=== PATIENT | female | born 1985 ===

== ENCOUNTER 2021-12-08 19:06 | Outpatient (REF) | payer OTHER, SELFPAY | END 2021-12-08 19:07 | disposition home or self-care (01) | LOC: NCHCN 19:06 | PROVIDERS: Visit Provider Family Medicine | DX: J06.9 Acute upper respiratory infection, unspecified (principal) | CPT/HCPCS: 87070; 87205 ==

== ENCOUNTER 2022-01-23 16:46 | Outpatient (REF) | payer OTHER, SELFPAY ==
--- NOTE | 2022-01-23 16:30 | SKI_PTH ---
PATIENT: Mei Potts LOC: [facility] U#:[id number] AGE/SX: 36/F ROOM: RE01/23/[address]: Meg Mcmullen : 1985 BED: DIS: 01/23/2022 SPEC #: [id number] RECD: 01/24/22 12:16 STATUS: ANTONIO MANJARREZ #: [id number] CAROLYN: 01/23/22 16:[address]: Meg Mcmullen DEPT: Surgical Specimen RECD BY: Violeta Christensen Tissues: 1 - SKIN BIOPSY(SHAVE/PUNCH) Procedures: SKIN LEVEL 4 Comments: [id number]
== END 2022-01-23 16:47 | disposition home or self-care (01) ==
LOC: NCHCN 16:46
PROVIDERS: Visit Provider Nurse Practitioner Family
DX: L30.8 Other specified dermatitis (principal)
CPT/HCPCS: 88305

== ENCOUNTER 2023-10-02 19:21 | Outpatient (REF) | payer OTHER, SELFPAY ==
--- NOTE | 2023-10-02 16:30 | PAPFT_PTH ---
PATIENT: Mei Potts LOC: [facility]#:[id number] AGE/SX: 38/F ROOM: RE10/02/[address]: SHERINE: 1985 BED: DIS: 10/02/2023 SPEC #: [id number] RECD: 10/03/23 13:15 STATUS: ANTONIO LOKI #: [id number] CAROLYN: 10/02/23 16:[address]: Amelia Jolly DEPT: [facility] Cytology RECD BY: Violeta Christensen ENTERED: 10/03/23 13:15 SP TYPE: PAPFT FRANCA DR: Unknown,Unknown Tissues: 1 - CX/ENDOCX FOR PAP SMEARS Procedures: PAP THIN PREP/[facility] Screening HPV DNA PROBE Comments: [id number] (HPV 16 & 18/45)
== END 2023-10-02 19:22 | disposition home or self-care (01) ==
LOC: NCHCN 19:21
PROVIDERS: Visit Provider Family Medicine
DX: Z12.4 Encounter for screening for malignant neoplasm of cervix (principal); Z11.51 Encounter for screening for human papillomavirus (HPV)
CPT/HCPCS: 88142; 87624